=== PATIENT | male | born 1990 | race Two or more races ===

== ENCOUNTER → 2018-11-15 03:20 | Emergency (ER) | payer OTHER ==
[~2018-11-15 03:20] MED LIST: Al Hydrox/Mg Hydrox/Simet LIQ* 30 ML UDC PO ONE; Famotidine TAB* 20 MG PO ONE; Ondansetron ODT TAB* 4 MG PO ONE; Sucralfate TAB* 1 GM PO ONE
--- NOTE | 2018-11-15 03:50 | ED ---
Abdominal Pain/Male - HPI Summary HPI Summary: This patient is a 28 year old M presenting to [facility] with a chief complaint of aching upper abdominal pain radiating to his mid-back since the morning of 11/14, worsening since. He says that it feels like a muscular pain. The patient rates the pain 6/10 in severity. Patient reports mild weakness, nausea, vomiting , diarrhea, decreased PO today (water makes the pain worse and food doesnt do anything), and difficulty sleeping secondary to the abd pain. Patient denies fevers, chills, cough, congestion, and SOB. He reports that no one else around him is sick and denies recent travel. He has not taken any medication for his abd pain. He has been using an Albuterol inhaler recently. - History of Current Complaint Chief Complaint: EDAbdPain Stated Complaint: ABD PAIN PER PT. Time Seen by Provider: 11/15/18 03:35 Hx Obtained From: Patient Onset/Duration: Sudden Onset, Lasting Days, Still Present Timing: Constant Severity Currently: Moderate Pain Intensity: 6 Pain Scale Used: 0-10 Numeric Location: Other - Upper abdomen Radiates: Yes Radiates to: Back Character: Other: - Aching Aggravating Factor(s): Other: - Water Alleviating Factor(s): Position Associated Signs And Symptoms: Positive: Decreased Appetite, Nausea, Vomiting, Diarrhea, Other - Aching upper abdominal pain radiating to his mid-back, difficulty sleeping secondary to the pain. Denies chills, congestion, and SOB.. Negative: Fever, Cough - Allergies/Home Medications Allergies/Adverse Reactions: Allergies Allergy/AdvReac Type Severity Reaction Status Date / Time nut - unspecified Allergy Swelling Verified 03/24/18 14:33 Of Face,Lips,& Throat fruit Allergy See Comment Uncoded 03/24/18 14:33 PMH/Surg Hx/FS Hx/Imm Hx History: Denies: Hx Kidney Stones Sensory History: Denies: Hx Deafness Infectious Disease History: No Infectious Disease History: Denies: Traveled Outside the [place] in Last 30 Days - Family History Known Family History: Positive: Cardiac Disease, Renal Disease - Kidney disease - Social History Alcohol Use: Weekly Substance Use Type: Reports: None Smoking Status (MU): Never Smoked Tobacco Review of Systems Positive: Other - Mild weakness and difficulty sleeping secondary to the abd pain. Negative: Fever, Chills Negative: Shortness Of Breath, Cough, Other - Congestion Positive: Vomiting, Diarrhea, Nausea, Other - Decreased PO All Other Systems Reviewed And Are Negative: Yes Physical Exam - Summary Physical Exam Summary: Appearance: well appearing, no pain distress Skin: warm, dry, reflects adequate perfusion Head/face: normal Eyes: EOMI, LANIE ENT: mucous membranes moist Neck: supple, non-tender Respiratory: CTA, breath sounds present Cardiovascular: RRR, pulses symmetrical Abdomen: non-tender, soft Bowel Sounds: present Musculoskeletal: normal, strength/ROM intact Neuro: normal, sensory motor intact, A&Ox3 Triage Information Reviewed: Yes Vital Signs On Initial Exam: Initial Vitals Temp Pulse Resp BP Pulse Ox 98.9 F 53 16 120/85 97 11/15/18 03:22 11/15/18 03:22 11/15/18 03:22 11/15/18 03:22 11/15/18 03:22 Vital Signs Reviewed: Yes Diagnostics - Vital Signs Vital Signs Temp Pulse Resp BP Pulse Ox 11/15/18 03:22 98.9 F 53 16 120/85 97 - Laboratory Result Diagrams: 11/15/18 04:22 11/15/18 04:22 Lab Statement: Any lab studies that have been ordered have been reviewed, and results considered in the medical decision making process. Re-Evaluation - Re-Evaluation 1 Re-Evaluation Time: 05:39 Change: Improved Comment: Patient feels better, just a little nauseous now. Abdominal Pain Male Course/Dx - Course Course Of Treatment: Patient presents with epigastric abdominal pain radiating through to the back. Laboratories are normal including lipase and LFTs. He was given GI medications with full relief. He will follow-up with [facility] and continue GI meds. - Diagnoses Differential Diagnosis/HQI/PQRI: Constipation, Gall Bladder Disease, Pancreatitis, Peptic Ulcer Disease Provider Diagnoses: Epigastric abdominal pain, Gastritis Discharge - Sign-Out/Discharge Documenting (check all that apply): Patient Departure - D/C home Patient Received Moderate/Deep Sedation with Procedure: No - Discharge Plan Condition: Improved Disposition: HOME Prescriptions: Famotidine TAB* [Pepcid 20 MG TAB*] 20 mg PO BID #20 tab Ondansetron ODT TAB* [Zofran 4 MG Odt TAB*] 4 mg PO Q8H PRN #10 tab.odt PRN Reason: Nausea Pantoprazole TAB * [Protonix TAB*] 40 mg PO DAILY #30 tab Sucralfate TAB* [Carafate*] 1 gm PO QID #40 tab Patient Education Materials: Gastritis (ED) Referrals: [facility] [Provider Group] Additional Instructions: Avoid alcohol, caffeine, anti-inflammatory medication such as Aleve, ibuprofen, aspirin. Avoid hot or spicy foods and any acidic foods. Return with uncontrolled pain, vomiting blood, worse, new symptoms or other concerns. Call today to schedule follow-up with [facility]. - Billing Disposition and Condition Condition: IMPROVED Disposition: Home - Attestation Statements Document Initiated by Claudio: Yes Documenting Scribe: Maximo Mcgee Provider For Whom Claudio is Documenting (Include Credential): Manuelito Gilbert MD Scribe Attestation: Maximo Bateman, scribed for Manuelito Gilbert MD on 11/15/18 at 0617. Scribe Documentation Reviewed: Yes Provider Attestation: The documentation as recorded by the Maximo motta accurately reflects the service I personally performed and the decisions made by Manuelito mora MD Status of Scribe Document: Viewed
[2018-11-15 04:34] LABS: ABS Eosinophils 0.2 10^3/ul (0-0.6); ABS Lymphocytes 1.5 10^3/ul (1.0-4.8); ABS Monocytes 0.5 10^3/ul (0-0.8); ABS Neutrophils 3.5 10^3/ul (1.5-7.7); Eosinophil % 4.1 %; Hematocrit 45 % (42-52); Lymphocyte % 25.5 %; Mean Corpuscular HGB Conc 34 g/dL (31-36); Mean Corpuscular Hemoglobin 30 pg (27-31); Mean Corpuscular Volume 89 fL (80-94); Mean Platelet Volume 7.2 fL (7.4-10.4); Nucleated Red Blood Cells % 0.1; Platelet Count 236 10^3/uL (150-450); Red Cell Distribution Width 13 % (10.5-15); White Blood Count 5.7 10^3/uL (3.5-10.8)
[2018-11-15 05:07] LABS: ALT 20 U/L (7-52); Albumin 4.6 g/dL (3.2-5.2); Albumin/Globulin Ratio 2.2 (1-3); Alkaline Phosphatase 66 U/L (34-104); BUN/Creatinine Ratio 16.2 (8-20); Blood Urea Nitrogen 16 mg/dL (6-24); C Reactive Protein < 1.00 mg/L (<8.01); CO2 Carbon Dioxide 28 mmol/L (22-32); Calcium 9.3 mg/dL (8.6-10.3); Chloride 105 mmol/L (101-111); EGFR African American 109.7 (>60); EGFR Non-African American 90.7 (>60); Globulin 2.1 g/dL (2-4); Glucose 99 mg/dL (70-100); Sodium 139 mmol/L (135-145); Total Protein 6.7 g/dL (6.4-8.9)
[2018-11-15 05:24] LABS: AST 26 U/L (13-39); Anion Gap 6 mmol/L (2-11); Potassium 4.1 mmol/L (3.5-5.0)
[2018-11-15 06:16] VITALS: BP 125/72
== END | disposition home or self-care (01) ==
LOC: ED 03:20
DX: R10.13 Epigastric pain (principal); K29.70 Gastritis, unspecified, without bleeding
CPT/HCPCS: 36415; 80053; 83605; 83690; 85025; 86140; 99282; A9270-GY